=== PATIENT | female | born 1965 | race Caucasian/White ===

== ENCOUNTER 2020-04-30 16:15 | Emergency (ER) | payer MEDICAID, MEDICARE ==
[~2020-04-30] VITALS: Ht 170.2 cm; Wt 74.0 kg
[~2020-04-30 16:15] MED LIST: CLON0.25 PO; OXYC5CAP2 PO; SERT25TA3 PO; TOPI25TA32 PO
[2020-04-30 17:02] LABS: BASOPHILS # (AUTO) 0.07 x10^3/uL (0-0.1); BASOPHILS % (AUTO) 1 % (0-1); EOSINOPHILS % (AUTO) 0 % (1-7); LYMPHOCYTES # (AUTO) 2.12 x10^3/uL (1-3.4); LYMPHOCYTES % (AUTO) 16 % (22-44); MD NO; MEAN CORPUSCULAR HEMOGLOBIN 32.1 pg (27.0-34.8); MEAN CORPUSCULAR HGB CONC 32.7 g/dL (32.4-35.8); MEAN CORPUSCULAR VOLUME 98.1 fL (80-100); MONOCYTES # (AUTO) 0.74 x10^3/uL (0.2-0.8); MONOCYTES % (AUTO) 6 % (2-9); NEUTROPHILS # (AUTO) 10.68 x10^3/uL (1.8-6.8); NEUTROPHILS % (AUTO) 78 % (42-75); PLATELET COUNT 372 x10^3/uL (130-400); RED BLOOD COUNT 4.77 x10^6/uL (3.82-5.3)
[2020-04-30 17:11] LABS: ALBUMIN 4.3 g/dL (3.4-5.0); ANION GAP 11 mmol/L (5-15); CALCIUM 8.9 mg/dL (8.5-10.1); CHLORIDE 108 mmol/L (98-107)
--- NOTE | 2020-04-30 17:14 | NUR ---
PT'S CARGIVER CALLED EMS BECAUSE PT REPORTS THAT SHE HAS BEEN HAVING SI WITH NO PLAN BUT IS LOOKING FOR HELP. SHE IS SCARED OF THE THOUGHTS THAT SHE IS HAVING. PATIENT IN ROOM IN GOWN. ROOM IS SAFE AND SECURE. BELONGINS ARE LOCKED UP. INDU SITTER OUTSIDE ROOM. PT ON A L2K PER LONDON CABRERA. URINE SENT
[2020-04-30 17:15] LABS: SALICYLATE LEVEL < 1.7 mg/dL (2.8-20.0)
--- NOTE | 2020-04-30 17:18 | NUR ---
THROUGHPUT RN::[facility] CALLED TO SAY THEY DO NOT CONTRACT WITH THIS PT'S INSURANCE AND CAN NOT ACCEPT HER.
[2020-04-30 17:22] LABS: ALANINE AMINOTRANSFERASE 19 U/L (12-78); ALKALINE PHOSPHATASE 95 U/L (45-117); BILIRUBIN,TOTAL 0.5 mg/dL (0.2-1.0); CREATININE 0.83 mg/dL (0.55-1.02); TOTAL PROTEIN 8.2 g/dL (6.4-8.2)
[2020-04-30 17:50] LABS: MICROSCOPIC NOT IND
[2020-04-30 17:51] LABS: AMPHETAMINE SCREEN, URINE Negative (Negative); BARBITURATE SCREEN, URINE Negative (Negative); BENZODIAZEPINE SCREEN, URINE Negative (Negative); CANNABINOID SCREEN, URINE Negative (Negative); COCAINE SCREEN, URINE Negative (Negative); METHADONE SCREEN, URINE Negative (Negative); OPIATE SCREEN, URINE Negative (Negative)
[2020-04-30] MEDS ORDERED: POTASSIUM CHLORIDE 20 MEQ TAB.ER.PRT ONE (18:58)
[2020-04-30] MEDS ORDERED: ACETAMINOPHEN 325 MG TABLET ONE (18:58)
[2020-04-30] MEDS ORDERED: POTASSIUM CHLORIDE 20 MEQ TAB.ER.PRT PO ONE (19:00)
[2020-04-30] MEDS ORDERED: ACETAMINOPHEN 325 MG TABLET PO ONE (19:00)
--- NOTE | 2020-04-30 19:01 | NUR ---
REPORT FROM [facility] ASSUMED CARE OF PT
--- NOTE | 2020-04-30 19:05 | NUR ---
Gave report to Jennie Marquez RN
--- NOTE | 2020-04-30 19:20 | NUR ---
Throughput RN: Packets faxed to [facility]OS[facility], Georgi, NORMA, [facility], and [facility].
--- NOTE | 2020-04-30 19:30 | NUR ---
sandwich and chips to ptat this time sitter outside room pt in nad
--- NOTE | 2020-04-30 20:30 | NUR ---
MT: [facility] ACCEPTED PT FOR 0030. ACCEPTING DR WILL BE DR. IRVIN.
[2020-04-30 20:45] VITALS: BP 120/75
--- NOTE | 2020-04-30 21:15 | NUR ---
[facility] transport set for 0030 tonight.
--- NOTE | 2020-04-30 23:13 | NUR ---
PT IN NAD AWAITING [facility] FOR TRANSPORT AT THIS TIME
== END 2020-05-01 01:01 ==
LOC: ED 17:18
DX: F33.9 Major depressive disorder, recurrent, unspecified (principal); R45.851 Suicidal ideations; K52.89 Other specified noninfective gastroenteritis and colitis; E87.6 Hypokalemia; R00.0 Tachycardia, unspecified; Z91.14 Patient's other noncompliance with medication regimen; Z90.49 Acquired absence of other specified parts of digestive tract
CPT/HCPCS: 36415; 80053; 80307; 81003; 84443; 85025; 99285